=== PATIENT | female | born 1950 | race Caucasian/White ===

== ENCOUNTER → 2020-01-16 | Outpatient (CLI) | payer MEDICARE, MEDICAID ==
[~2020-01-16] MED LIST: ALBU83IN INH; BENZ200C70; IBUP200C25 PO
--- NOTE | 2020-01-16 12:28 | REP ---
INDICATION: ABNORMAL FINDING OF LUNG FIELD COMPARISON: None TECHNIQUE: Axial noncontrast images from the thoracic inlet to the upper abdomen with coronal and sagittal reformations. This CT examination was performed using the following dose reduction techniques: Automated exposure control, adjustment of mA and/or kv according to the patient's size, and use of iterative reconstruction technique. 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 A small right pleural effusion is also identified as well as significant mediastinal and hilar adenopathy. Atherosclerotic changes to the thoracic aorta and coronary arteries noted. No cardiomegaly. Small pericardial fluid is nonspecific. Musculoskeletal structures demonstrate age-related degenerative changes with subtle lucent changes primarily noted in T7 vertebral body. Limited upper abdomen demonstrates normal bilateral adrenal glands and incompletely evaluated peripelvic renal cysts. IMPRESSION: Malignancy and metastatic changes as described above. <Electronically signed by Rome Lopez > 01/16/20 [id number]
== END ==
LOC: M RAD 10:34
PROVIDERS: ATTEND Internal Medicine Pulmonary Disease
DX: R91.8 Other nonspecific abnormal finding of lung field (principal); J90 Pleural effusion, not elsewhere classified

== ENCOUNTER 2020-01-29 07:54 | Day surgery (SDC) | payer MEDICARE, MEDICAID ==
[~2020-01-29] VITALS: Ht 152.4 cm; Wt 78.0 kg
[~2020-01-29 07:54] MED LIST changes: +LR 1,000 ML IV ONE
[2020-01-29] MEDS ORDERED: fentaNYL 100 MCG/2 ML INJECTION (J3010) As Ordered ONE ×2 (08:12→10:18)
[2020-01-29] MEDS ORDERED: ROCURONIUM BROMIDE 50 MG/5 ML VIAL As Ordered ONE (08:12)
[2020-01-29] MEDS ORDERED: MIDAZOLAM INJ 2MG/2ML VIAL (J2250 PER 1MG) As Ordered ONE (08:12)
[2020-01-29] MEDS ORDERED: LIDOCAINE 2% 100MG/5ML SDV (FOR ANES.) As Ordered ONE (08:12)
[2020-01-29] MEDS ORDERED: propofoL 200 MG/20 ML VIAL As Ordered ONE (08:12)
[2020-01-29] MEDS ORDERED: LIDOCAINE 4% INJ 5ML AMP NEB ONE (08:30)
[2020-01-29] MEDS ORDERED: ALBUTEROL SULFATE 2.5 MG/0.5 ML INH NEB SOLN NEB ONE (08:30)
[2020-01-29] MEDS ORDERED: CETACAINE SPRAY 5GM As Ordered ONE (08:54)
[2020-01-29] MEDS ORDERED: EPINEPHrine 1MG/10ML SYRINGE 1.5IN As Ordered ONE (08:54)
[2020-01-29] MEDS ORDERED: dexameTHASONE 4 MG/ML 1ML VIAL (J1100 PER 1MG) As Ordered ONE (09:35)
[2020-01-29] MEDS ORDERED: PHENYLephrine HCL 500 MCG/5 ML (100MCG/ML) SYRINGE (J2370) As Ordered ONE ×2 (09:48→10:13)
[2020-01-29] MEDS ORDERED: ONDANSETRON 4MG/2ML VIAL As Ordered ONE (09:48)
[2020-01-29] MEDS ORDERED: METOCLOPRAMIDE INJ 10MG/2ML VIAL (J2765 PER 1) As Ordered ONE (09:49)
--- NOTE | 2020-01-29 11:00 | REP ---
INDICATION: PLACEMENT. COMPARISON: Comparison CT study January 16, 2020.. TECHNIQUE: Portable sitting AP radiograph. FINDINGS: Innumerable pulmonary nodules are seen bilaterally. Diffuse interstitial lung disease is seen on the right. There is some fissural thickening in the minor fissure. Fullness in the right paratracheal region of the mediastinum is noted. There is no evidence of pneumothorax or hydrothorax. IMPRESSION: Extensive nodular parenchymal disease and diffuse interstitial disease in the right lung. Fullness in the right hilum. No pneumothorax or hydrothorax seen. <Electronically signed by Ilir Singh > 01/29/20 [id number]
[2020-01-29] MEDS ORDERED: fentaNYL 100 MCG/2 ML INJECTION (J3010) IV PRN (11:15)
[2020-01-29] MEDS ORDERED: oxyCODONE 5MG TAB PO PRN (11:15)
[2020-01-29] MEDS ORDERED: ONDANSETRON 4MG/2ML VIAL IV PRN (11:15)
[2020-01-29] MEDS ORDERED: MEPERIDINE INJ 25 MG/ML VIAL (J2175) IV PRN (11:15)
[2020-01-29] MEDS ORDERED: LR 1,000 ML IV SCH (11:15)
[2020-01-29] MEDS ORDERED: METOCLOPRAMIDE INJ 10MG/2ML VIAL (J2765 PER 1) IV PRN (11:15)
--- NOTE | 2020-01-29 11:44 | ROOR ---
Patient Name: Kathy Quinn Procedure Date: 01/29/2020 9:05 AM Date of : 1950 Admit Type: Outpatient Age: 69 Note Status: Finalized Attending MD: Rosmery Mcallister MD Procedure: Bronchoscopy Indications: Right upper lobe mass, Adenopathy Providers: Rosmery Mcallister MD (Doctor), Shiv Lopez DO, MILANA (1st Assisting Doctor) Referring MD: Denise France (Referring MD) Requesting Physician: Medicines: Lidocaine 4% via nebulizer with Albuterol 2.5 mg, Cetacaine topical, General Anesthesia Complications: No immediate complications. Estimated blood loss: Minimal Procedure: Pre-Anesthesia Assessment: - Prior to the procedure, a History and Physical was performed, and patient medications and allergies were reviewed. The patient's tolerance of previous anesthesia was also reviewed. The risks and benefits of the procedure and the sedation options and risks were discussed with the patient. All questions were answered, and informed consent was obtained. Prior Anticoagulants: The patient has taken no previous anticoagulant or antiplatelet agents. ASA Grade Assessment: III - A patient with severe systemic disease. After reviewing the risks and benefits, the patient was deemed in satisfactory condition to undergo the procedure. - Patient identification and proposed procedure were verified prior to the procedure by the physician, the nurse, the anesthesiologist, the animal laboratory helper and the production technician. The procedure was verified in the procedure room. The Bronchoscope was introduced through the mouth, via the endotracheal tube (the patient was intubated for the procedure) and advanced to the tracheobronchial tree of both lungs. The procedure was accomplished without difficulty. The patient tolerated the procedure well. Findings: Trachea appeared normal, natalie was sharp. In the right lung there was minimal mucosal nodularity in right main stem bronchus. There were some mucoid secretions. The right upper lobe mucosa appeared edematous with some minimal narrowing of the segemental orifaces. In the left lung the left lower lobe mucosa appeared mildly edematous. [employer] Robotic Electromagnetic navigation bronchoscopy was performed. The CT scan was used for planning purposes. A virtual bronchoscopic image was generated using the planning software. The target in the posterior segment of the right upper lobe was marked. A mass 3.5 cm in size was found and a pathway was created. After a complete airway exam, the robotic navigation phase was then begun to locate the target lesion(s). Positioning centrally (in relation to the lesion) was confirmed using the Olympus radial probe US catheter. Transbronchial biopsies of a mass were performed in the posterior segment of the right upper lobe using forceps and sent for histopathology examination. The procedure was guided by fluoroscopy. Transbronchial biopsy technique was selected because the sampling site was not accessible using standard endoscopic (bronchoscopic) techniques. Fluoroscopy guided transbronchial brushings of a mass were obtained in the posterior segment of the right upper lobe with a cytology brush and sent for routine cytology. Transbronchial brushing technique was selected because the sampling site was not visible endoscopically. An endobronchial ultrasound endoscope was utilized in order to assist with fine needle aspiration in the left hilum. Transbronchial needle aspirations of a lymph node were performed in the left hilum using an Olympus EBUS-TBNA 21 gauge needle and sent for routine cytology. The procedure was guided by ultrasound. Transbronchial needle aspiration technique was selected because the sampling site was not visible endoscopically. Impression: - Right upper lobe mass - Adenopathy - Robotic Electromagnetic navigation bronchoscopy was performed. - Transbronchial lung biopsies were performed. - Transbronchial brushings were obtained. - Endobronchial ultrasound was performed. - A transbronchial needle aspiration was performed. Recommendation: - Follow up with bronchoscopist as previously scheduled. - Follow up with referring physician as previously scheduled. Attending Participation: I personally performed the entire procedure. Rosmery Mcallister MD 01/29/2020 11:43:53 AM Shiv Lopez DO, [facility] Number of Addenda: 0 Note Initiated On: 01/29/2020 9:05 AM
[2020-01-29 11:50] VITALS: BP 140/67
--- NOTE | 2020-01-29 19:56 | ECGEPIP ---
[facility] Test Date: 2020-01-29 Pat Name: CRUZITO BRIONES Department: Room: - Gender: Female Chairman & Chief Executive Officer: LEXI : 1950 Requested By: Parminder Lopez Order Number: [id number] Reading MD: Shiv Kasper Measurements Intervals [place] Rate: 78 P: 30 CA: 129 QRS: 16 QRSD: 85 T: 30 QT: 365 QTc: 418 Interpretive Statements SINUS RHYTHM WITH FREQUENT VENTRICULAR PREMATURE COMPLEXES LOW QRS VOLTAGE IN PRECORDIAL LEADS Comparison tracing not on file Electronically Signed on 01-29-2020 19:55:52 EST by Shiv Kasper
== END 2020-01-29 11:50 | disposition home or self-care (01) ==
LOC: M SDC 07:54
PROVIDERS: ATTEND Internal Medicine Pulmonary Disease
DX: C34.11 Malignant neoplasm of upper lobe, right bronchus or lung (principal); C77.1 Secondary and unspecified malignant neoplasm of intrathoracic lymph nodes; E55.9 Vitamin D deficiency, unspecified
CPT/HCPCS: 31623; 31627; 31628; 31629; 31652; 71045; 76000; 88104; 88173; 88305; 88342; 93005; C1887; J1100; J2250; J2370; J2405; J2765; J3010; S2900